=== PATIENT | female | born 1970 | race Caucasian/White ===

== ENCOUNTER 2018-01-14 20:35 | Emergency (ER) | payer BC ==
[~2018-01-14] VITALS: Ht 175.3 cm; Wt 140.0 kg
[~2018-01-14 20:35] MED LIST: CA C1TAB63 PO; CHOL10002 PO; CYAN100014 PO; ESTR1PAT40 TD; FERR325T18 PO; FOLI0.4T2 PO; HYDR-3240 PO; HYDR-882 PO; IRON1TAB60 PO; MULT-6 PO; ONDA8TAB12 PO
[2018-01-14 21:09] LABS: BASOPHILS # (AUTO) 0.06 x10^3/uL (0-0.1); BASOPHILS % (AUTO) 1 % (0-1); EOSINOPHILS # (AUTO) 0.15 x10^3/uL (0-0.4); EOSINOPHILS % (AUTO) 2 % (1-7); LYMPHOCYTES # (AUTO) 1.79 x10^3/uL (1-3.4); LYMPHOCYTES % (AUTO) 23 % (22-44); MD NO; MEAN CORPUSCULAR HEMOGLOBIN 28.3 pg (27.0-34.8); MEAN CORPUSCULAR VOLUME 83.1 fL (80-100); MEAN PLATELET VOLUME 6.8 fL (7.4-10.4); MONOCYTES # (AUTO) 0.41 x10^3/uL (0.2-0.8); MONOCYTES % (AUTO) 5 % (2-9); NEUTROPHILS # (AUTO) 5.29 x10^3/uL (1.8-6.8); NEUTROPHILS % (AUTO) 69 % (42-75); PLATELET COUNT 266 x10^3/uL (130-400); RED BLOOD COUNT 4.77 x10^6/uL (3.82-5.3)
[2018-01-14 21:19] LABS: ANION GAP 10 mmol/L (5-15); CHLORIDE 106 mmol/L (98-107)
[2018-01-14 21:20] LABS: ALBUMIN 3.4 g/dL (3.4-5.0)
[2018-01-14 21:24] LABS: TROPONIN I < 0.015 ng/mL (0.000-0.045)
[2018-01-14 22:44] VITALS: BP 134/86
== END 2018-01-14 23:32 | disposition home or self-care (01) ==
LOC: ED 23:08
DX: R07.89 Other chest pain (principal); R06.00 Dyspnea, unspecified; Z87.891 Personal history of nicotine dependence
CPT/HCPCS: 36415; 71045; 80048; 82040; 84484; 85025; 93005; 99285